=== PATIENT | male | born 1970 | race African-American/Black ===

== ENCOUNTER 2019-02-15 14:34 | Emergency (ER) | payer BC, OTHER ==
[~2019-02-15] VITALS: Ht 175.3 cm; Wt 65.8 kg
[2019-02-15 15:58] VITALS: BP 113/71
== END 2019-02-15 16:33 | disposition home or self-care (01) ==
LOC: ER 14:39
DX: S00.95XA Superficial foreign body of unspecified part of head, initial encounter (principal); X58.XXXA Exposure to other specified factors, initial encounter; Y93.89 Activity, other specified; Y99.8 Other external cause status; Y92.89 Other specified places as the place of occurrence of the external cause